=== PATIENT | female | born 1990 | race Caucasian/White ===

== ENCOUNTER 2019-02-01 03:17 | Emergency (ER) | payer SELFPAY ==
[~2019-02-01] VITALS: Ht 165.1 cm; Wt 67.3 kg
--- NOTE | 2019-02-01 03:17 | NUR ---
[id number] FROM HOME POSSIBLE OD OF UNKNOWN SUBSTANCE. PT FOUND UNRESPONSIVE. 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 PUPILS. VSS. WILL CONTINUE TO MONITER.
[2019-02-01] MEDS ORDERED: NALOXONE PREFILLED SYRINGE 2 MG/2 ML SYRINGE ONE (03:38)
[2019-02-01] MEDS ORDERED: ONDANSETRON HCL/PF 4 MG/2 ML VIAL ONE (03:39)
--- NOTE | 2019-02-01 03:50 | NUR ---
URINE COLLECTED AND SENT TO LAB
--- NOTE | 2019-02-01 03:50 | NUR ---
TIE LAYER AT BEDSIDE FOR BLOOD DRAW
--- NOTE | 2019-02-01 03:55 | NUR ---
PT UNRESPONSIVE TO PAINFUL STIMULI. NOTED GAG REFLEX. PER MD ORDER, ADMINISTERED NARCAN 2MG IV PUSH. PT RESPONSIVE TO PAINFUL STIMULI. VITAL SIGNS STABLE. WILL CONTINUE TO MONITOR CLOSELY
[2019-02-01 03:59] LABS: APPEARANCE,URINE Clear (CLEAR); BILIRUBIN,URINE Negative (NEGATIVE); BLOOD, URINE Large Ery/uL (NEGATIVE); COLOR,URINE Yellow (YELLOW); KETONES,URINE 15 (NEGATIVE); LEUKOCYTE ESTERASE ,URINE Small (NEGATIVE); NITRITE, URINE Negative (NEGATIVE); PH,URINE 6.5 (5.0-8.0); PROTEIN,URINE Negative (NEGATIVE); UGLUCOSE Negative (NEGATIVE); UROBILINOGEN,URINE 0.2 EU/dL (0.2)
[2019-02-01] MEDS ORDERED: NALOXONE PREFILLED SYRINGE 2 MG/2 ML SYRINGE IV ONE (04:00)
[2019-02-01 04:13] LABS: CALCIUM, SERUM 8.7 mg/dL (8.5-10.1); CARBON DIOXIDE 26 mmol/L (21-32); CHLORIDE 105 mmol/L (98-107); CREATININE 0.7 mg/dL (0.6-1.3); GLUCOSE 117 mg/dL (74-106); POTASSIUM 3.5 mmol/L (3.5-5.1); SODIUM SERUM 145 mmol/L (136-145); UREA NITROGEN, BLOOD 7 mg/dL (7-18)
[2019-02-01 04:17] LABS: ALANINE AMINOTRANSFERASE 26 U/L (12-78); ALBUMIN 3.8 g/dL (3.4-5.0); ALCOHOL, BLOOD < 3 mg/dL (0-0); ALKALINE PHOSPHATASE 64 U/L (46-116); ASPARTATE AMINOTRANSFERASE 10 U/L (15-37); BILIRUBIN,DIRECT 0.1 mg/dL (0.0-0.2); BILIRUBIN,TOTAL 0.4 mg/dL (0.2-1.0); TOTAL PROTEIN, SERUM 7.3 g/dL (6.4-8.2)
[2019-02-01 04:19] LABS: ACETAMINOPHEN 0 ug/ml (10-30); SALICYLATE 1.2 mg/dL (2.8-20.0)
[2019-02-01 04:20] LABS: BASOPHILS # (AUTO) 0.1 /CMM (0.0-0.2); BASOPHILS % (AUTO) 0.3 % (0.0-2.0); EOSINOPHILS % (AUTO) 2.8 % (0.0-6.0); HEMATOCRIT 39 % (33-45); HEMOGLOBIN 13.4 g/dL (11.5-14.8); LYMPHOCYTES # (AUTO) 1.1 /CMM (0.8-4.8); MEAN CORPUSCULAR HGB CONC 34 g/dl (31.0-36.0); MEAN CORPUSCULAR VOLUME 95 fL (82-100); MONOCYTES % (AUTO) 6.3 % (2.0-12.0); NEUTROPHILS # (AUTO) 13.7 /CMM (1.8-8.9); NEUTROPHILS % (AUTO) 83.6 % (43.0-81.0); PLATELET COUNT (AUTO) 440 /CMM (150-450); RED BLOOD CELL COUNT(AUTO) 4.15 MIL/uL (4.0-5.2); WHITE BLOOD COUNT (AUTO) 16.4 K/uL (4.3-11.0)
--- NOTE | 2019-02-01 04:37 | NUR ---
PT RESTING COMFORTABLY IN BED. VSS. STILL ON CONTINOUS CARDIAC MONITER. WILL CONTINUE TO MONITER PT.
[2019-02-01 04:42] LABS: RBC,URINE 21-50 /HPF (0-2)
[2019-02-01 04:43] LABS: BACTERIA,URINE None seen /HPF (None Seen); SQUAMOUS EPITHELIAL CELL,UR Few /HPF (None Seen); URINE AMORPHOUS URATE Few /HPF (None Seen)
[2019-02-01] MEDS ORDERED: ONDANSETRON HCL/PF 4 MG/2 ML VIAL IV ONE (05:00)
--- NOTE | 2019-02-01 05:08 | NUR ---
BROUGHT BY RADIOLOGY TO CT
--- NOTE | 2019-02-01 11:30 | NUR ---
patient alert and awake x4.states she remembers last night just wanting to get high and used meth and clonazepam pills. denies suicidal ideation or attempt.
[2019-02-01 12:21] VITALS: BP 118/72
--- NOTE | 2019-02-01 12:22 | NUR ---
per md ok for discharge. patient pending mom to burr picker
--- NOTE | 2019-02-01 12:33 | NUR ---
IV removed. Catheter intact and site benign. Pressure and 4x4 applied to site. No bleeding noted.Patient discharged to home in stable condition. Written and verbal after care instructions given. Patient verbalizes understanding of instruction. patient mother taking patient home. patient compliant with not driving
== END 2019-02-01 12:22 | disposition home or self-care (01) ==
LOC: ER 03:18
DX: T65.91XA Toxic effect of unspecified substance, accidental (unintentional), initial encounter (principal); R40.4 Transient alteration of awareness; Z60.2 Problems related to living alone; Y92.89 Other specified places as the place of occurrence of the external cause
CPT/HCPCS: 36415; 70450; 80048; 80076; 80305; 80307; 80329; 81001; 82962; 84703; 85025; 93005; 96374; 96375; 99284; G0480; J2310; J2405; 81000-TC